=== PATIENT | male | born 1980 | race Caucasian/White ===

== ENCOUNTER 2022-02-11 20:30 | Emergency (ER) | payer OTHER ==
[~2022-02-11] VITALS: Ht 177.8 cm; Wt 105.2 kg
[2022-02-11 20:58] VITALS: BP 139/90
--- NOTE | 2022-02-11 21:02 | NUR ---
Pt ambulated to bed 6. Pt does not want to report to [facility]
--- NOTE | 2022-02-11 21:15 | NUR ---
ERMD AT BEDSIDE FOR EXAMINATION
--- NOTE | 2022-02-11 21:39 | NUR ---
42 Y/O M BIB SELF FOR DOG BITE. PT WAS BIT BY VACCINATED DAVKY AT 8 AM. CAME BY AFTER WORK TO BE EXAMINED. PT HAS A PUNCURE THAT IS HEALING AND BRUISING TO LEFT MEDIAL THIGH. THERE IS NO BLEEDING BUT BRUISING CIRCUMFERENCING THE WOUND. PT HAS 0/10. NO PMH . NO ALLERGIES.
[2022-02-11 21:58] VITALS: BP 135/85
--- NOTE | 2022-02-11 21:58 | NUR ---
Patient discharged with v/s stable. Written and verbal after care instructions given and explained. Patient alert, oriented and verbalized understanding of instructions. Ambulatory with steady gait. All questions addressed prior to discharge. ID band removed. Patient advised to follow up with PMD. tdap vaccine given .Opportunity to ask questions provided and answered.
--- NOTE | 2022-02-11 22:10 | NUR ---
The patient's care was reviewed and supervised by Carmen Henry RN
== END 2022-02-11 21:58 | disposition home or self-care (01) ==
LOC: MED 20:30
DX: S71.101A Unspecified open wound, right thigh, initial encounter (principal); W54.0XXA Bitten by dog, initial encounter; Y93.89 Activity, other specified; Y92.89 Other specified places as the place of occurrence of the external cause; Y99.8 Other external cause status
CPT/HCPCS: 90471; 90715; 99283